=== PATIENT | female | born 1975 ===

== ENCOUNTER 2017-10-31 11:59 | Emergency (ER) | payer SELFPAY ==
[2017-10-31 12:27] VITALS: BMI 31.1
[2017-10-31] MEDS ORDERED: Betamethasone Soluspan 30 mg/5mL Inj Susp IM ONE (12:31)
[2017-10-31] MEDS ORDERED: Lactated Ringer's 1,000 ML IV SCH ×2 (12:45→14:45)
--- NOTE | 2017-10-31 13:12 | OBHP ---
Datetime: 10/31/2017 12:50 IP Adm Impression: , intrauterine ; No Active Labor; Intact Membranes IP Admit Plan: Observation/Evaluation Admit Comment, IP Provider: 41yo IUP at 34w sent from [facility] Dr Casas for CTX noted on monitor . Pt feels no CTX. SVE in [facility] was closed. Pt was sent over with FFN sample and Betamthasone dosing. She is shceduled to come back again tmrw for repeat Beta and Thurs for OB follow up. PNC: [facility] GDMA POBGYNH: denies STD; C/S x1 PMH: Denies PSH: C/S NKA PSoH: denies smoking ETOH drugs A: IUP at 34w threatened PTL C/Sx1 GDMA PLAN: FFN to be sent Beta as requested Pt understands condition, meds, and treatment plan. She speaks onlyu uzbek and was told everyth ing by Dr Casas in [facility] prior to arrival. Pelvic Type - PN: Adequate Extremities - PN: Normal Abdomen - PN: Normal Back - PN: Normal Breast - PN: Not Done Lungs - PN: Normal Heart - PN: Normal Thyroid - PN: Normal Neurologic - PN: Normal HEENT - PN: Normal General - PN: Normal FHR - Baseline A Provider: 135 Pool Provider: Negative IP Hx Assessment: The History has been Reviewed and is Current IP Chief Complaint: Other NICHD Variability Prov Fetus A: Moderate 6-25bpm NICHD Accel Fetus A IP Provider: 15X15 FHR Category Provider Fetus A: Category I NICHD Decel Fetus A IP Provider: None Genitourinary Exam: Normal DTRs - PN: Normal
[2017-10-31 14:33] LABS: SPECIMEN COMMENT SL.CLOUDY
[2017-10-31 15:31] LABS: SQUAMOUS EPITHIAL 2 /hpf (0-5); URINE BACTERIA MANY (<OCC); URINE BILIRUBIN NEGATIVE (NEGATIVE); URINE BLOOD NEGATIVE (NEGATIVE); URINE CLARITY CLOUDY (Clear); URINE COLOR YELLOW (YELLOW); URINE GLUCOSE (UA) NEG (Normal); URINE HYALINE CAST 0-2 /hpf (0-2); URINE LEUKOCYTE ESTERASE NEG Leu/uL (Negative); URINE NITRATE POSITIVE (NEGATIVE); URINE PROTEIN NEGATIVE (NEGATIVE)
[2017-10-31 20:24] VITALS: BP 104/64; PULSE 75; RESP 17; TEMP 97.8; O2SAT 98
--- NOTE | 2017-11-01 03:50 | OBDCSUM ---
Datetime: 10/31/2017 16:03 Discharged to, Provider: Home Follow up at, Provider: [facility] Disch Instr Activity: Normal activity Disch Instr Diet: Regular Discharge Instructions, Provider: Routine instructions given Discharge Time: 10/31/2017 16:04 Follow up in weeks, Provider: as per appt; next /DR Butcher Disch Referrals: None Contraception discussed, Prov: No Disch Activity Restrictions: No exercising; No sexual activity; Nothing in vagina - [place], sinha peter avelar Discharge Comment, Provider: FFN neg; UA+ Given Ccephalexin 500mg po TID x 7d; urine culture to be f ollowed up at [facility] Discharge Diagnosis Prov Other: IUP at 34w threatend PTL Hx C/S
== END 2017-10-31 16:20 | disposition home or self-care (01) ==
LOC: H.EROB2 11:59 → H.EROB 12:23 → H.EROB2 16:20
DX: O47.03 False labor before 37 completed weeks of gestation, third trimester (principal); Z3A.34 34 weeks gestation of pregnancy
CPT/HCPCS: 81003; 82731; 87086; 87181; 96360; 96372; 99283; J0702; J7120

== ENCOUNTER 2017-11-01 12:53 | Emergency (ER) | payer SELFPAY ==
[2017-11-01 13:27] VITALS: BMI 27.3
[2017-11-01] MEDS ORDERED: Betamethasone Soluspan 30 mg/5mL Inj Susp IM ONE (13:44)
[2017-11-01 18:22] VITALS: BP 104/60; PULSE 89; RESP 18; TEMP 98.3; O2SAT 98
== END 2017-11-01 14:15 | disposition home or self-care (01) ==
LOC: H.EROB2 12:53
DX: O47.03 False labor before 37 completed weeks of gestation, third trimester (principal); Z3A.34 34 weeks gestation of pregnancy; Z23 Encounter for immunization; Z87.59 Personal history of other complications of pregnancy, childbirth and the puerperium; O24.419 Gestational diabetes mellitus in pregnancy, unspecified control
CPT/HCPCS: 96372; 99281; J0702

== ENCOUNTER 2017-11-07 11:43 | Emergency (ER) | payer SELFPAY ==
[2017-11-07 13:53] VITALS: BMI 28.3
[2017-11-07] MEDS ORDERED: Lactated Ringer's 1,000 ML IV SCH ×2 (14:00→15:18)
[2017-11-07 14:15] LABS: SQUAMOUS EPITHIAL 6 /hpf (0-5); URINE BACTERIA MOD (<OCC); URINE BILIRUBIN NEGATIVE (NEGATIVE); URINE BLOOD SMALL (NEGATIVE); URINE CLARITY SLIGHTY-CLOUDY (Clear); URINE COLOR YELLOW (YELLOW); URINE GLUCOSE (UA) NEG (Normal); URINE LEUKOCYTE ESTERASE NEG Leu/uL (Negative); URINE NITRATE NEGATIVE (NEGATIVE); URINE PROTEIN NEGATIVE (NEGATIVE)
--- NOTE | 2017-11-07 18:23 | OBHP ---
Datetime: 11/07/2017 18:10 IP Adm Impression: , intrauterine IP Admit Plan: Observation/Evaluation Admit Comment, IP Provider: 41yo IUP at 35.3wk edc 12/09/17 referred to connie for r/o labor. c/o abdominal tightness. Pt denies abd pain, CTX, VB, LOF. Reports movement. PNC: [facility] GDMA POBGYNH: denies STD; C/S x1 PMH: Denies PSH: C/S NKA PSoH: denies smoking ETOH drugs I: 35.3wks Prior CD addendum: Pelvic Type - PN: Adequate Extremities - PN: Normal Abdomen - PN: Normal Lungs - PN: Normal Heart - PN: Normal Neurologic - PN: Normal HEENT - PN: Normal General - PN: Normal Presentation-Admit: Vertex FHR - Baseline A Provider: 130 Contraction Comments Provider: q3min Comments, ACOG Physical Exam: bedside us: vtx 13:10 _ 16:45 no cerv change EGA AdmitDate IP: 35.3 IP Chief Complaint: Other NICHD Variability Prov Fetus A: Moderate 6-25bpm NICHD Accel Fetus A IP Provider: 15X15 FHR Category Provider Fetus A: Category I NICHD Decel Fetus A IP Provider: None Dilatation, Provider: 0 Effacement, Provider: 30 Station, Provider: -3 Genitourinary Exam: Normal
[2017-11-07 21:28] VITALS: BP 98/59; PULSE 76; O2SAT 99
== END 2017-11-07 17:05 | disposition home or self-care (01) ==
LOC: H.EROB2 11:43
DX: O26.93 Pregnancy related conditions, unspecified, third trimester (principal); R10.2 Pelvic and perineal pain; Z3A.35 35 weeks gestation of pregnancy
CPT/HCPCS: 81003; 96360; 99283; J7120

== ENCOUNTER 2017-11-18 17:20 | Inpatient (IN) | payer MEDICAID, SELFPAY ==
[2017-11-18 18:00] VITALS: BMI 26.4
[2017-11-18] MEDS: Lactated Ringer's 1,000 ML IV SCH ×2 (18:15→19:39)
[2017-11-18] MEDS ORDERED: ceFAZolin 1 GM in Sodium Chloride 0.9% 100 ML IVPB ONE (18:24)
[2017-11-18] MEDS ORDERED: Lactated Ringer's 1,000 ML IV SCH (18:30)
[2017-11-18] MEDS ORDERED: Morphine 1 mg/ml preservative-free Inj(Duramorph) ONE (18:44)
[2017-11-18] MEDS ORDERED: ePHEDrine 50 mg/ml Inj ONE (18:48)
[2017-11-18] MEDS ORDERED: Phenylephrine 10 mg/ml Inj ONE (18:48)
[2017-11-18 18:55] LABS: BASO % 0.6 % (0.0-2.0); EOS # 0.1 K/uL (0.0-0.7); EOS % 1.5 % (0.0-4.0); HEMOGLOBIN 10.1 g/dL (12.0-16.0); LYMPH # 2.1 K/uL (1.0-4.3); LYMPH % 25.9 % (20.0-40.0); MEAN CORPUSCULAR HEMOGLOBIN 28.6 pg (27.0-31.0); MEAN PLATELET VOLUME 10.3 fl (7.2-11.7); MONO # 0.7 K/uL (0.0-0.8); MONO % 9.2 % (0.0-10.0); NEUT % 62.8 % (50.0-75.0); NRBC % 0.1 % (0.0-0.0); RBC 3.52 Mil/uL (3.80-5.20); RED CELL DISTRIBUTION WIDTH 14.1 % (11.5-14.5)
[2017-11-18] MEDS ORDERED: Oxytocin 30 UNITS in Sodium Chloride 0.9% 500 ML IV ONE (19:32)
[2017-11-18] MEDS ORDERED: Oxycodone/Acetaminophen 5/325 mg Tab PO PRN (23:10)
--- NOTE | 2017-11-18 23:16 | OBDS ---
DELIVERY PERSONNEL Delivery Doctor: Yara Mahoney MD Scrub Nurse: Maame Smith RN Vice President Of Nursing: Parvin Alfaro RN Anesthesiologist: Reg Pan MD Resident: Dr Estevez MATERNAL INFORMATION Delivery Anesthesia: Spinal Medications in Delivery: ancef 1g, pit 30/500 , Estimated Blood Loss (ml): 500 Placenta Cultured: No Maternal Complications: None Provider Comments: Repeat low transverse delivery of a viable male with BW of 8Ibs 1 4 oz and scores of 9 and 9. Delivered in cephalic presentation, nuchal cord X2, true knot in um bilical cord X1. EBL- 500mls. LABOR SUMMARY EDC: 12/09/2017 00:00 No. Babies in Womb: 1 Attempted: No Labor Anesthesia: Intrathecal LABOR INFORMATION Reason for Induction: Not Applicable Onset of Labor: 11/18/2017 15:30 Oxytocin: N/A Group B Beta Strep: Negative Steroids Given: Full Course MEMBRANES Membranes Rupture Method: Spontaneous Rupture of Membranes: 11/18/2017 15:30 Length of Rupture (hrs): 6.98 Amniotic Fluid Color: Clear Amniotic Fluid Amount: Moderate Amniotic Fluid Odor: None STAGES OF LABOR Stage 3 hrs: 0 Stage 3 min: -1 Total Time in Labor hrs: 6 Total Time in Labor min: 58 CSECTION DELIVERY Primary Indication: Repeat Elective Other Primary Indication: Rupture of membranes Secondary Indication: Other CSection Urgency: Elective CSection Incidence: Repeat Labor: Labor Elective: Elective CSection Incision: Lower Uterine Transverse Uterine Closure: Double-layer closure BABY A INFORMATION Infant Delivery Date/Time: 11/18/2017 22:29 Method of Delivery: Born in Route : No : N/A Forceps: N/A Vacuum Extraction: N/A Shoulder Dystocia : No SHOULDER DYSTOCIA BABY A Infant Delivery Date/Time: 11/18/2017 22:29 PRESENTATION/POSITION BABY A Presentation: Cephalic PLACENTA INFORMATION BABY A Placenta Delivery Time : 11/18/2017 22:28 Placenta Method of Delivery: Manual Removal Placenta Status: Delivered SCORES BABY A Heart Rate 1 min: >100 bpm Resp Effort 1 min: Good Cry Reflex Irritability 1 min: Cough or Sneeze or Pulls Away Muscle Tone 1 min: Active Motion Color 1 min: Body [place], Extremities Blue Resuscitation Effort 1 min: N/A SCORE 1 MIN: 9 Heart Rate 5 min: >100 bpm Resp Effort 5 min: Good Cry Reflex Irritability 5 min: Cough or Sneeze or Pulls Away Muscle Tone 5 min: Active Motion Color 5 min: Body [place], Extremities Blue Resuscitation Effort 5 min: N/A SCORE 5 MIN: 9 INFANT INFORMATION BABY A Gestational Age at Delivery: 37.0 Gestational Status: Term Outcome : Liveborn Condition : Stable Infant Sex: Male IDENTIFICATION/MEDS BABY A ID Band Number: [id number] ID Band Location: Left Leg; Left Arm WEIGHT/LENGTH BABY A Birthweight (gms): 4030 Weight (lb): 8 Weight (oz): 14 CORD INFORMATION BABY A No. Cord Vessels: 3 Nuchal Cord : Around Neck x2, Tight True Knot: 1x Cord Blood Taken: Yes Suction: Mouth; Nose ASSESSMENT BABY A Infant Complications: None Physical Findings at Delivery: Within Normal Limits Respirations: Appears Normal Griddle Attendant/ALS Called : Yes Care By: DR Fraser Transferred To: Remains with Mother
--- NOTE | 2017-11-18 23:22 | OBHP ---
Datetime: 11/18/2017 18:40 IP Adm Impression: Term, intrauterine ; Active labor; Ruptured Membranes IP Adm Impression Other: Previous Delivery X1 IP Admit Plan: Admit to unit; Initiate Section protocol Admit Comment, IP Provider: 41 yo at 37.0 weeks gestational age by u/s at 12w5d with + spont aneous rupture of membranes. +FM, -VB, -CTX. GDM, failed 3hr gtt. Started glyburide 2 days ago after visit w/ MFM. ROS: denies chest pain, sob, headache, dizziness, burning w/ urination. care: Praveena ROMAN labwork: rubella immune, gbs neg, hbsag neg, gc/cl neg, hiv neg, rpr neg, abo O pos. Ob hx: primary in 2009 due to failure to dilate. Med hx: none Past surg hx: x1 Social hx: denies tobacco, alcohol, drug use Fam hx: mother w/ nurse obgyn cancer dx age 59 Allergies: knda Meds: pnv, metformin started on due to suboptimal glucose measurements PE: Gen: no acute distress, alert CV: S1S2, RRR Resp: clear breath sounds b/l Abd: gravid, +BS Ext: no significant edema or deformity, no tenderness SSE: gross pooling in vaginal vault SVE: cervix closed Assessment: 41 yo at 37.0 weeks, presented to [facility] with +SROM. Plan: Admit to unit, initiate protocol; abx prophylaxis 2g ancef. Pt seen/discussed w/ [email or web address] Attending Note: Pt seen and examined with resident and I agree with the above. Xu Mahoney M.D. Extremities - PN: Normal Abdomen - PN: Normal Back - PN: Normal Breast - PN: Not Done Lungs - PN: Normal Heart - PN: Normal Thyroid - PN: Not Done Neurologic - PN: Normal HEENT - PN: Normal General - PN: Normal Presentation-Admit: Vertex FHR - Baseline A Provider: 140 Membranes, Provider: Taco Comments, ACOG Physical Exam: SSE: gross pooling in vaginal vault SVE: cervix closed Gestation - Est Wks by US: 39.2 Pool Provider: Positive EGA AdmitDate IP: 37.0 Vital Signs Provider: Reviewed IP Chief Complaint: Uterine contractions; Suspected ruptured membranes NICHD Variability Prov Fetus A: Moderate 6-25bpm NICHD Accel Fetus A IP Provider: 15X15 FHR Category Provider Fetus A: Category I NICHD Decel Fetus A IP Provider: None Dilatation, Provider: 0 Genitourinary Exam: Normal DTRs - PN: Not Done
--- NOTE | 2017-11-18 23:49 | PCM.SURG1 ---
Surgeon's Initial Post Op Note - Surgeon's Notes Surgeon: Dr Mahoney Composer Teaching Artist: Bernabe Walton( Resident) Type of Anesthesia: Spinal Anesthesia Administered By: Dr Pan Pre-Operative Diagnosis: IUP at 37wks with Prior Section with Spontanous Rupture of Membranes and early labor Operative Findings: Live male Infant with BW of 8Ibs 14 oz delivered in cephalic presentation with of 9 and 9, Tight nuchal cord X2 and True knot in umbilical cord X1, Fundal placenta and clear amniotic fluid. Uterus, both fallopian tubes and ovaries appeared normal. IVFluids- 1500mls. EBL- 500mls. Urine output - 400mls. Post-Operative Diagnosis: Same as Preop Diagnosis Operation Performed: Repeat Low transverse Section Specimen/Specimens Removed: Umbilical cord blood Estimated Blood Loss: EBL {In ML}: 500 Blood Products Given: N/A Date of Surgery/Procedure: 11/18/17 Time of Surgery/Procedure: 23:53
[2017-11-19] MEDS ORDERED: ceFAZolin IV 1 gm in Dextrose 1 GM/50 ML BAG IVPB SCH ×2 (01:00→06:00)
[2017-11-19] MEDS ORDERED: Oxycodone/Acetaminophen 5/325 mg Tab PO PRN (02:35)
[2017-11-19] MEDS ORDERED: Lactated Ringer's 1,000 ML IV SCH (02:35)
[2017-11-19 07:58] LABS: BASO # 0.1 K/uL (0.0-0.2); BASO % 0.6 % (0.0-2.0); EOS % 0.2 % (0.0-4.0); HEMOGLOBIN 8.9 g/dL (12.0-16.0); LYMPH # 1.6 K/uL (1.0-4.3); LYMPH % 17.3 % (20.0-40.0); MEAN CORPUSCULAR HEMOGLOBIN 28.1 pg (27.0-31.0); MEAN CORPUSCULAR HGB CONC 33.1 g/dL (33.0-37.0); MEAN PLATELET VOLUME 10.2 fl (7.2-11.7); MONO # 0.7 K/uL (0.0-0.8); MONO % 7.5 % (0.0-10.0); NEUT # 7.1 K/uL (1.8-7.0); NEUT % 74.4 % (50.0-75.0); RBC 3.17 Mil/uL (3.80-5.20); RED CELL DISTRIBUTION WIDTH 14.4 % (11.5-14.5); WHITE BLOOD COUNT 9.5 K/uL (4.8-10.8)
[2017-11-19] MEDS: ceFAZolin 1 GM in Sodium Chloride 0.9% 100 ML IVPB SCH ×2 (13:01→21:56)
--- NOTE | 2017-11-20 08:29 | OP ---
PROCEDURE DATE: PREOPERATIVE DIAGNOSIS: Intrauterine at 37 weeks with Previous section coming with spontaneous rupture of membranes and early labor. POSTOPERATIVE DIAGNOSIS: Intrauterine at 37 weeks with Previous section coming with spontaneous rupture of membranes and early labor. PROCEDURE DONE: Repeat low-transverse section performed on 11/18/2017. SURGEON: Xu Mahoney MD MEDIUM CYCLE SALESPERSON: Isabelle Estevez, family practice resident. Assistance to this procedure was needed for exposure of tissues and helping the delivery of the baby. The aquatics assistant department head remained with surgery throughout it's entire length. TYPE OF ANESTHESIA: Spinal. ANESTHESIA ADMINISTERED BY: Vin Pan MD OPERATIVE FINDINGS: A live male infant with weight of 8 pounds, 14 ounces, delivered in cephalic presentation with scores of 9 in the first and fifth minutes respectively. There was a tight nuchal cord x2 and a true knot in the umbilical cord x1. Placenta was fundal. Amniotic fluid was clear. The uterus as well as both fallopian tubes and ovaries appeared normal. IV FLUID INTAKE: 1500 mL. ESTIMATED BLOOD LOSS: 500 mL. URINE OUTPUT: 400 mL of clear urine. COMPLICATIONS: There were no complications. SPECIMEN SENT: Included umbilical cord blood for analysis. DESCRIPTION OF PROCEDURE: After going through all the risk and benefits as well as alternatives to the section procedure and having all the questions from the patient answered, the patient was sent to the OR with IV running Pritchard catheter in place. The patient was sat on the OR table and after adequate spinal anesthesia was put in a supine position with left lateral tilt. The patient was then prepped and draped in the usual sterile fashion. A Pfannenstiel skin incision was made using a scalpel as this was extended through the subcutaneous tissues till the rectus fascia was identified. Using a Bovie device, a transverse incision was made in the rectus fascia and this was extended to both sides by means of Yancey scissors. The rectus fascia was then lifted off the underlying rectus muscles both superiorly and inferiorly by means of sharp dissection with Yancey scissors and blunt dissection. The rectus muscles were in the midline to expose the peritoneum, which was carefully entered by tenting the peritoneum between 2 Jessica clamps and carefully entered with Metzenbaum scissors. Once the abdominal cavity was entered, the above findings were noted. The vesico-uterine fold of peritoneum was identified, incised in a transverse fashion using the Metzenbaum scissors and retracted inferiorly to expose the lower uterine segment. A low-transverse incision was made using a scalpel and this incision was sent to the myometrial layers until the amniotic membranes were identified. Amniotic membranes were ruptured with pickup forceps and the baby which was positioned in cephalic presentation was delivered. Baby cried immediately after . The mouth and nostrils were both suctioned and a 3-vessel cord was clamped and cut and baby given to the nurse. The placenta was manually removed from the uterine cavity after getting some blood for umbilical cord analysis. The uterus was then brought out of the abdominal cavity. The uterine cavity cleaned of all debris using dry laparotomy pads. The uterine incision was the closed into 2 layers using Vicryl #0, a first layer in a running lock fashion and second layer in a running fashion imbricating the first layer. This was conducted until hemostasis was noted. Once hemostasis was noted, irrigation of the pelvis was undertaken with warm normal saline. The uterus was then returned into the abdominal cavity after taking off all instruments and laparotomy pads. Attention was turned to the anterior abdominal wall after assuring hemostasis. Anterior abdominal wall was closed in layers with 2-0 Vicryl for the peritoneum and rectus muscles. The rectus fascia was re-approximated using Vicryl #0. A subcontinuous tissue was brought together by means of #2-0 plain catgut. The skin was closed in the subcuticular fashion using #3-0 Biosyn. All counts of instruments, laparotomy pads and needles used were correct x3, and the patient was sent to the recovery room awake and in stable condition. Xu Mahoney MD EVA
--- NOTE | 2017-11-20 14:15 | OBPPN ---
Datetime: 11/19/2017 08:48 PP Pain Prov: Within normal limits PP Nausea Prov: Present PP Flatus Prov: No PP BM Prov: No PP Heart Prov: Normal PP Lungs Prov: Normal PP Abdomen/Uterus Prov: Normal PP CVA Tenderness Prov: Normal PP Extremities Prov: Normal PP C/S Incision Prov: Normal PP Progress Prov: Normal PP Impression Prov: Normal progression PP Plan Prov: Continue present management PP Progress Note Prov: 41 y/o now seen and examined at bedside. Pt reports pain is controlled with pain medications. Pt reports she felt nauseous and vomited after eating breakfast this morning. Pt denies passing gas per rectum and no BM yet. OOB/ambulating well without dizziness. Denies chest pain, dyspnea, headache, dizziness or calf pain. Physical Exam: General: A_O, resting comfortably in bed, NAD HEENT: white sclera, pink conjunctiva, oral mucosa moist. Lungs: CTA B/L, no wheezing, rhonchi or rales CVS: RRR, S1, S2 NL ABD: ND, +BS; Incision: Incision: clean, dry and intact. no induration, erythema or fluctuation. no dehiscence EXT: no edema, negative Michelle's sign, calves nontender Neuro/psych: AAOX3, no grossly focal deficit, preserved affect and mood. Assessment: 41 yo now s/p repeat , POD#1 doing well. Plan: Advance to regular diet as tolerated. Discontinue Pritchard SCD for DVT prophylaxis Percocet and Ibuprofen for pain management Zofran prn for nausea Encourage and ambulation. Anticipate discharge on [place] Elise, PGY-1 Case d/w OB attending Dr. Mahoney Attending Note: Pt was seen and discussed with the resident and I agree with the above. Vital Signs Provider PP: Reviewed
--- NOTE | 2017-11-20 14:15 | OBADHP ---
Datetime: 11/18/2017 18:40 IP Adm Impression Other: Previous Delivery X1 Admit Comment, IP Provider: 41 yo at 37.0 weeks gestational age by u/s at 12w5d with + spont aneous rupture of membranes. +FM, -VB, -CTX. GDM, failed 3hr gtt. Started glyburide 2 days ago after visit w/ MFM. ROS: denies chest pain, sob, headache, dizziness, burning w/ urination. care: Praveena ROMAN labwork: rubella immune, gbs neg, hbsag neg, gc/cl neg, hiv neg, rpr neg, abo O pos. Ob hx: primary in 2009 due to failure to dilate. Med hx: none Past surg hx: x1 Social hx: denies tobacco, alcohol, drug use Fam hx: mother w/ drill foreman cancer dx age 59 Allergies: knda Meds: pnv, metformin started on due to suboptimal glucose measurements PE: Gen: no acute distress, alert CV: S1S2, RRR Resp: clear breath sounds b/l Abd: gravid, +BS Ext: no significant edema or deformity, no tenderness SSE: gross pooling in vaginal vault SVE: cervix closed Assessment: 41 yo at 37.0 weeks, presented to [facility] with +SROM. Plan: Admit to unit, initiate protocol; abx prophylaxis 2g ancef. Pt seen/discussed w/ Dr. Mahoney. -[email or web address]. Attending Note: Pt seen and examined with resident and I agree with the above. Xu Mahoney M.D. Extremities - PN: Normal Abdomen - PN: Normal Back - PN: Normal Breast - PN: Not Done Lungs - PN: Normal Heart - PN: Normal Thyroid - PN: Not Done Neurologic - PN: Normal HEENT - PN: Normal General - PN: Normal Presentation-Admit: Vertex FHR - Baseline A Provider: 140 Membranes, Provider: Ruptured Comments, ACOG Physical Exam: SSE: gross pooling in vaginal vault SVE: cervix closed Gestation - Est Wks by US: 39.2 Pool Provider: Positive Vital Signs Provider: Reviewed IP Chief Complaint: Uterine contractions; Suspected ruptured membranes NICHD Variability Prov Fetus A: Moderate 6-25bpm NICHD Accel Fetus A IP Provider: 15X15 FHR Category Provider Fetus A: Category I NICHD Decel Fetus A IP Provider: None Dilatation, Provider: 0 Genitourinary Exam: Normal DTRs - PN: Not Done EGA AdmitDate IP: 37.0 IP Adm Impression: Term, intrauterine ; Active labor; Ruptured Membranes IP Admit Plan: Admit to unit; Initiate Section protocol Datetime: 11/07/2017 18:10 Pelvic Type - PN: Adequate Contraction Comments Provider: q3min Effacement, Provider: 30 Station, Provider: -3 Datetime: 10/31/2017 12:50 IP Hx Assessment: The History has been Reviewed and is Current
--- NOTE | 2017-11-20 18:16 | OBPPN ---
Datetime: 11/20/2017 06:28 PP Pain Prov: Within normal limits PP Nausea Prov: Denies PP Flatus Prov: Yes PP BM Prov: No PP Breasts Prov: Not Done PP Heart Prov: Normal PP Lungs Prov: Normal PP Abdomen/Uterus Prov: Normal PP Lochia Prov: Normal PP Vulva/Perineum Prov: Not Done PP CVA Tenderness Prov: Normal PP Extremities Prov: Normal PP C/S Incision Prov: Normal PP Progress Prov: Normal PP Impression Prov: Normal progression PP Plan Prov: Continue present management PP Progress Note Prov: 41 y/o now s/p c section on 11/18 seen and examined at bedside on POD2. Pt reports pain is controlled with pain medications. Reports naseau has resolved and is toelrating di et. Pt passing gas per rectum and no BM yet. OOB/ambulating well without dizziness. Denies chest martin n, dyspnea, headache, dizziness or calf pain. Requests circumcision for baby boy. Vitals: BP low 90's/50's, remainder of vitals wnl Physical Exam: General: A_O, resting comfortably in bed, NAD HEENT: white sclera, pink conjunctiva, oral mucosa moist. Lungs: CTA B/L, no wheezing, rhonchi or rales CVS: RRR, S1, S2 NL ABD: ND, +BS; Incision: Incision: clean, dry and intact. no induration, erythema or fluctuation. no dehiscence EXT: no edema, negative Michelle's sign, calves nontender Neuro/psych: AAOX3, no grossly focal deficit, preserved affect and mood. Assessment: 41 yo now s/p repeat , POD#2 doing well. BP borderline low, pt asymptom atic, orthostatics wnl. Pt encouraged to take PO fluids. Plan: Advance to regular diet as tolerated. SCD for DVT prophylaxis Percocet and Ibuprofen for pain management Zofran prn for nausea Encourage and ambulation. Anticipate discharge on Discussed case with OB Hospitalist Orly, PGY1, Attending Note: Pt seen and discussed with resident and I agree with the above. Vital Signs Provider PP: Reviewed; Within Normal Limits
--- NOTE | 2017-11-21 11:05 | OBPPN ---
Datetime: 11/21/2017 06:07 PP Pain Prov: Within normal limits PP Nausea Prov: Denies PP Flatus Prov: Yes PP BM Prov: No PP Breasts Prov: Not Done PP Heart Prov: Normal PP Lungs Prov: Normal PP Abdomen/Uterus Prov: Normal PP Lochia Prov: Normal PP Vulva/Perineum Prov: Not Done PP CVA Tenderness Prov: Normal PP Extremities Prov: Normal PP C/S Incision Prov: Normal PP Progress Prov: Normal PP Impression Prov: Normal progression PP Plan Prov: Continue present management PP Progress Note Prov: 41 y/o now s/p c section on 11/18 seen and examined at bedside on POD3. Pt reports pain is controlled with pain medications. Tolerating diet. Pt passing gas per rectum and n o BM yet. OOB/ambulating well without dizziness. Denies chest pain, dyspnea, headache, dizziness or calf pain. Circumcision completed for baby boy yesterday by Dr. Mahoney. Vitals stable Physical Exam: General: A_O, resting comfortably in bed, NAD HEENT: white sclera, pink conjunctiva, oral mucosa moist. Lungs: CTA B/L, no wheezing, rhonchi or rales CVS: RRR, S1, S2 NL ABD: ND, +BS; Incision: Incision: clean, dry and intact. No induration, erythema or fluctuation. no dehiscence EXT: no edema, negative Michelle's sign, calves nontender Neuro/psych: AAOX3, no grossly focal deficit, preserved affect and mood. Post op H/H: 8.9/26.9 Assessment: 41 yo now s/p repeat , POD#3 doing well. Asymptomatic anemia. Ferrous S ulfate started. Contraception discussed. Plan: SCD for DVT prophylaxis Percocet and Ibuprofen for pain management Ferrous Sulfate 325mg BID Encourage and ambulation. Anticipate discharge today. Discussed case with OB Hospitalist Orly, PGY1 Ob hospitalist note: On rounds I saw this patient. Agree with note. MAKENNA Vital Signs Provider PP: Reviewed; Within Normal Limits
--- NOTE | 2017-11-21 11:05 | OBDCSUM ---
Datetime: 11/21/2017 06:09 Discharged to, Provider: Home Follow up at, Provider: MD Oleary Instr Activity: May be up to bathroom; May be up for meals; May Shower Disch Instr Diet: Regular Discharge Instructions, Provider: Routine instructions given Discharge Diagnosis, Provider: Term Delivered Discharge Time: 11/21/2017 11:00 Follow up in weeks, Provider: 1-2 week Disch Referrals: None Contraception discussed, Prov: Yes Disch Activity Restrictions: No exercising; No lifting; Minimize stair-climbing; No sexual activity; Nothing in vagina - [place], tampons, douche Discharge Comment, Provider: EGA: 37wks Diagnosis: 41 yo now s/p repeat risk factors: Hx of GDM in prior : Male, 4030, 9/9, circumcised Post Summary: No complications during post period. Asymptomatic anemia. Discharge Instructions: 1. Encourage 2. PNV 1 tab po daily 3. Ibuprofen 600mg 1 tab prn for mild-mod pain 4. Percocet 5/325 1 tab po prn for severe pain 5. Ferrous Sulfate 325mg BID 6. ER precautions: If excessive bleeding or fever without relief from medication, go to ED 7. F/U in 1-2 weeks Discussed with OB Hospitalist Orly, PGY1 Ob hospitalist note: On rounds I saw this patient. Agree with note. MAKENNA Contraception after Delivery: Undecided
[2017-11-21 18:21] VITALS: BP 108/62; PULSE 72; RESP 20; TEMP 98.6; O2SAT 97
== END 2017-11-21 13:12 | disposition home or self-care (01) | DRG 766 ==
LOC: H.EROB2 17:20 → H.L&D 18:27 → H.OB/GYN 11-19 02:05
PROVIDERS: ADMIT Obstetrics & Gynecology; ATTEND Obstetrics & Gynecology
PROC: 10D00Z1 Extraction of Products of Conception, Low, Open Approach (ICD-10-PCS; principal; 2017-11-18)
PROC: 4A1HXCZ Monitoring of Products of Conception, Cardiac Rate, External Approach (ICD-10-PCS; 2017-11-18)
DX: O34.211 Maternal care for low transverse scar from previous cesarean delivery (principal); O24.415 Gestational diabetes mellitus in pregnancy, controlled by oral hypoglycemic drugs; O69.1XX0 Labor and delivery complicated by cord around neck, with compression, not applicable or unspecified; O90.81 Anemia of the puerperium; D64.9 Anemia, unspecified; O09.523 Supervision of elderly multigravida, third trimester; Z37.0 Single live birth; Z3A.37 37 weeks gestation of pregnancy; R11.0 Nausea